=== PATIENT | female | born 1990 | race Caucasian/White ===

== ENCOUNTER 2020-07-17 18:41 | Emergency (ER) | payer MEDICAID, SELFPAY ==
[2020-07-18 00:31] LABS: SARS-CoV-2 PCR by NAA Not Detected (NotDetected)
== END 2020-07-17 19:20 | disposition home or self-care (01) ==
LOC: ERS 18:41
DX: Z20.822 Contact with and (suspected) exposure to COVID-19 (principal)
CPT/HCPCS: 87635; 99283; U0003; U0005

== ENCOUNTER 2021-08-12 14:54 | Emergency (ER) | payer MEDICAID, SELFPAY ==
[2021-08-12] MEDS ORDERED: Clindamycin 150 MG CAP ONE (16:33)
[2021-08-12] MEDS ORDERED: Ketorolac Tromethamine 30 MG/ML VIAL ONE (16:33)
== END 2021-08-12 16:55 | disposition home or self-care (01) ==
LOC: ERS 14:54
DX: K08.89 Other specified disorders of teeth and supporting structures (principal)
CPT/HCPCS: 96372; 99282; J1885